=== PATIENT | male | born 1985 ===

== ENCOUNTER 2021-01-10 15:15 | Emergency (ER) | payer SELFPAY ==
--- NOTE | 2021-01-10 16:11 | Emergency Department Report ---
ED General Adult HPI - General Chief complaint: Hyperglycemia Stated complaint: DIABETIC PROBLEM PUI?: No Time Seen by Provider: 01/10/21 15:45 Source: patient Mode of arrival: Ambulatory Limitations: No Limitations - History of Present Illness Initial comments: Chief complaint: " I think my sugar is high." provided Sinhala interpretation. HPI: This 35-year-old male with history of diabetes mellitus who presents with elevated blood sugar. He feels thirsty. Otherwise has been in good health. He recently moved from [facility] to [place]. He needs refills of his medications Metformin and insulin. -: Gradual, days(s) (Several days of thirst) Severity scale (0 -10): 2 Consistency: constant Improves with: none Worsens with: none Associated Symptoms: denies other symptoms Treatments Prior to Arrival: none - Related Data Previous Rx's Medication Instructions Recorded Last Taken Type Insulin Glargine [Lantus VIAL] 30 unit SUB-Q QHS #1 vial 01/10/21 Unknown Rx Metformin HCl [metFORMIN] 1,000 mg PO BID #60 tablet 01/10/21 Unknown Rx ED Review of Systems ROS: Stated complaint: DIABETIC PROBLEM Other details as noted in HPI Comment: All other systems reviewed and negative Constitutional: denies: chills, fever, malaise Respiratory: denies: cough, shortness of breath Gastrointestinal: denies: abdominal pain, nausea, vomiting ED Past Medical Hx - Past Medical History Previous Medical History?: Yes Hx Diabetes: Yes - Surgical History Past Surgical History?: No - Social History Smoking Status: Never Smoker Substance Use Type: None - Medications Home Medications: Home Medications Medication Instructions Recorded Confirmed Last Taken Type Insulin Glargine [Lantus VIAL] 30 unit SUB-Q QHS #1 vial 01/10/21 Unknown Rx Metformin HCl [metFORMIN] 1,000 mg PO BID #60 tablet 01/10/21 Unknown Rx ED Physical Exam - General Limitations: No Limitations General appearance: alert, in no apparent distress - Head Head exam: Present: atraumatic, normocephalic - Eye Eye exam: Present: normal appearance - ENT ENT exam: Present: mucous membranes moist - Neck Neck exam: Present: normal inspection - Respiratory Respiratory exam: Present: normal lung sounds bilaterally. Absent: respiratory distress - Cardiovascular Cardiovascular Exam: Present: regular rate, normal rhythm. Absent: systolic murmur, diastolic murmur, rubs, gallop - GI/Abdominal GI/Abdominal exam: Present: soft, normal bowel sounds - Rectal Rectal exam: Present: deferred - Extremities Exam Extremities exam: Present: normal inspection - Back Exam Back exam: Present: normal inspection - Neurological Exam Neurological exam: Present: alert, oriented X3 - Psychiatric Psychiatric exam: Present: normal affect, normal mood - Skin Skin exam: Present: warm, dry, intact, normal color. Absent: rash ED Course Vital Signs 01/10/21 15:15 Temperature 98.0 F Pulse Rate 87 Respiratory 18 Rate Blood Pressure 113/72 [Right] O2 Sat by Pulse 99 Oximetry ED Medical Decision Making - Medical Decision Making Medication refill, diabetes mellitus. Patient appears well nontoxic. Accu-Chek 292. I have provided prescription for Metformin 1000 mg and Lantus 30 units nightly. Referred to outpatient medicine physician. Critical care attestation.: If time is entered above; I have spent that time in minutes in the direct care of this critically ill patient, excluding procedure time. ED Disposition Clinical Impression: Hyperglycemia due to diabetes mellitus, Medication refill Disposition: 01 HOME / SELF CARE / HOMELESS Is pt being admited?: No Does the pt Need Aspirin: No Condition: Stable Instructions: Diabetes Mellitus Type 2 in Adults (ED), Type 2 Diabetes Mellitus, Self Care, Adult Prescriptions: Insulin Glargine [Lantus VIAL] 30 unit SUB-Q QHS #1 vial Metformin HCl [metFORMIN] 1,000 mg PO BID #60 tablet Referrals: LIDIA MCKEE MD [Staff Physician] - 3-5 Days Print Language: IRAQI
[2021-01-10 18:41] VITALS: BP 124/79
== END 2021-01-10 18:47 | disposition home or self-care (01) ==
LOC: ED 15:15
DX: E11.65 Type 2 diabetes mellitus with hyperglycemia (principal); Z76.0 Encounter for issue of repeat prescription
CPT/HCPCS: 82962; 99282